=== PATIENT | female | born 1990 | race Caucasian/White ===

== ENCOUNTER 2024-02-01 11:47 | Emergency (ER) | payer MEDICAID ==
[~2024-02-01] VITALS: Ht 170.2 cm; Wt 113.6 kg
[2024-02-01 11:48] VITALS: BP 127/92; PULSE 100; RESP 16; O2SAT 97
== END 2024-02-01 12:54 | disposition left against medical advice (07) ==
LOC: ER 11:47 → EDBD 11:47 → ER 12:54
DX: T78.49XA Other allergy, initial encounter (principal); Z91.030 Bee allergy status; X58.XXXA Exposure to other specified factors, initial encounter

== ENCOUNTER 2024-12-11 07:01 | Emergency (ER) | payer MEDICAID ==
[~2024-12-11] VITALS: Ht 172.7 cm; Wt 82.0 kg
--- NOTE | 2024-12-11 07:11 | ED.PDOC ---
HPI Allergic reaction HPI Comments This is a 33 year old female JAMES presenting to the ED with chief complaint of allergic reaction. Patient reports that she had gotten stung by a bee this morning, causing her to suffer from anaphylaxis. 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 Patient states that she took her Epi-Pen prior to driving to a fire station for assistance. EMS notes patient was provided 0.3mg of Epinephrine on route to the ED along with a DuoNeb breathing treatment. Patient reports that she currently has some throat swelling, but her symptoms have improved. Patient denies any syncope, itchiness, dizziness, SOB, chest pain, or N/V. Time Seen by MD: 07:06 Primary Care Provider: GAMA Ramos Notes: Nurses Notes, Vice President Of Talent Management Notes, Medications, Allergies Allergies: Coded Allergies: Bee Venom (Verified Allergy, Unknown, 02/01/24) Information Source: Patient, Emergency Med Personnel Mode of Arrival: EMS Severity: Moderate SOB: Moderate Difficulty swallowing: Moderate Timing: Hours Duration: Since onset Prehospital treatment: None Location: Generalized Exposed to: Insect Developed: Difficult Swallowing, Pruritus, Throat Swelliing History of: Prior Similar Episodes Past Medical History PAST MEDICAL HISTORY: Denies Surgical History: Denies all surgeries BALLAST REGULATOR OPERATOR History: No Pertinent BALLAST REGULATOR OPERATOR History Family History Family History: Reviewed,noncontributory to illness, Unknown Social History Smoker: Non-Smoker Alcohol: Denies ETOH Use Drugs: Denies Drug Use Lives In: Home Constitutional: denies: chills, diaphoresis, fatigue, fever, malaise, sweats, weakness, others EENTM: reports: throat swelling; denies: blurred vision, double vision, ear bleeding, ear discharge, ear drainage, ear pain, ear ringing, eye pain, eye redness, hearing loss, mouth pain, mouth swelling, nasal discharge, nose bleeding, nose congestion, nose pain, photophobia, tearing, throat pain, voice changes, others Respiratory: denies: cough, hemoptysis, orthopnea, SOB at rest, shortness of breath, SOB with excertion, stridor, wheezing, others Cardiovascular: denies: chest pain, dizzy spells, diaphoresis, Dyspnea on exertion, edema, irregular heart beat, left arm pain, lightheadedness, palpitations, PND, syncope, others Gastrointestinal: denies: abdomen distended, abdominal pain, blood streaked bowels, constipated, diarrhea, dysphagia, difficulty swallowing, hematemesis, melena, nausea, poor appetite, poor fluid intake, rectal bleeding, rectal pain, vomiting, others Genitourinary: denies: abnormal vagina bleeding, burning, dyspareunia, dysuria, flank pain, frequency, hematuria, incontinence, pain, , vagina discharge, urgency, others Neurological: denies: dizziness, fainting, headache, left sided numbness, left sided weakness, numbness, paresthesia, pre-existing deficit, right sided numbness, right sided weakness, seizure, speech problems, tingling, tremors, weakness, others Musculoskeletal: denies: back pain, gout, joint pain, joint swelling, muscle pain, muscle stiffness, neck pain, others Integumetry: denies: bruises, change in color, change in hair/nails, dryness, laceration, lesions, lumps, rash, wounds, others Allergic/Immunocompromised: reports: Hives; denies: Difficulty Healing, Frequent Infections, Itching, others Hematologic/Lymphatic: denies: anemia, blood clots, easy bleeding, easy bruising, swollen glands, others Endocrine: denies: excessive hunger, excessive sweating, excessive thirst, excessive urination, flushing, intolerance to cold, intolerance to heat, unexplained weight gain, unexplained weight loss, others Psychiatric: denies: anxiety, bipolar disorder, depression, hopeless, panic disorder, schizophrenia, sleepless, suicidal, others All Other Systems: Reviewed and Negative Physical Exam General Appearance: Mild Distress, Normal HEENT: Normal ENT Inspection, Pharynx Normal, TMs Normal Neck: Full Range of Motion, Non-Tender, Normal, Normal Inspection Respiratory: Chest Non-Tender, Lungs Clear, No Accessory Muscle Use, No Re spiratory Distress, Other (Tahcypneic) Cardiovascular: No Edema, No Murmur, No Gallop, Normal Peripheral Pulses, Tachycardia Breast Exam: Deferred Gastrointestinal: No Organomegaly, Non Tender, Normal Bowel Sounds, Soft Genitalia: Deferred Pelvic: Deferred Rectal: Deferred Extremities: No calf tenderness, Normal capillary refill, Normal inspection, Normal range of motion, Non-tender, No pedal edema Musculoskeletal : Apperance: Normal Neurologic: Alert, 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 Was a procedure done?: No Differential diagnosis (all) Differential Diagnosis: Anaphylaxis X-Ray, Labs, Meds, VS Vital Signs Date Time Temp Pulse Resp B/P (MAP) Pulse Ox O2 Delivery O2 Flow Rate FiO2 12/11/24 10:01 81 17 103/57 (72) 93 12/11/24 08:00 95 12/11/24 08:00 98.2 91 22 103/69 (80) 95 98.2 12/11/24 07:31 102 21 97 Nasal Cannula* 2 28 12/11/24 07:29 98.0 105 24 114/73 (87) 93 98.0 12/11/24 07:23 98.9 112 22 138/88 100 98.9 Current Medications Medications (Trade) Dose Ordered Sig/Dileep Route Start Time Stop Time Status Last Admin Famotidine 40 mg/ Sodium Chloride 104 ml @ 416 mls/hr ONCE ONCE IV 12/11/24 07:15 12/11/24 07:29 DC 12/11/24 08:03 Methylprednisolone Sodium Succinate 500 mg/Sodium Chloride 100 ml @ 200 mls/hr ONCE ONCE IV 12/11/24 07:15 12/11/24 07:44 DC 12/11/24 08:34 Diphenhydramine HCl (Benadryl Injection) 50 mg ONCE ONCE IV 12/11/24 07:15 12/11/24 07:16 DC 12/11/24 07:24 X-Ray, Labs, Meds, VS Comment This 33-year-old female presents after having had allergic reaction to a bee sting. She has known allergic. She has given one epi in route by EMS. This followed her providing herself with an epi pen dose. Here, the patient was given Solu-Medrol, Pepcid and Benadryl. The patient was observed for several hours and continued to be asymptomatic. As such, she will be discharged home. The patient is aware of how to manage her anaphylaxis including allergy medications, Pepcid and steroids. As such, no new prescriptions were provided. The patient will be discharged home. Time of 1ST Reevaluation: 08:03 Reevaluation 1ST: Improved Patient Education/Counseling: Diagnosis, Treatment Family Education/Counseling: No Family Present SEPSIS Sepsis Screen Vital Signs Date Time Temp Pulse Resp B/P (MAP) Pulse Ox O2 Delivery O2 Flow Rate FiO2 12/11/24 10:01 81 17 103/57 (72) 93 12/11/24 08:00 95 12/11/24 08:00 98.2 91 22 103/69 (80) 95 98.2 12/11/24 07:31 102 21 97 Nasal Cannula* 2 28 12/11/24 07:29 98.0 105 24 114/73 (87) 93 98.0 12/11/24 07:23 98.9 112 22 138/88 100 98.9 Medications Medications Dose Ordered Sig/Dileep Route Start Time Stop Time Status Last Admin Dose Admin Diphenhydramine HCl 50 mg ONCE ONCE IV 12/11/24 07:15 12/11/24 07:16 DC 12/11/24 07:24 Famotidine 40 mg/ Sodium Chloride 104 ml @ 416 mls/hr ONCE ONCE IV 12/11/24 07:15 12/11/24 07:29 DC 12/11/24 08:03 Methylprednisolone Sodium Succinate 500 mg/Sodium Chloride 100 ml @ 200 mls/hr ONCE ONCE IV 12/11/24 07:15 12/11/24 07:44 DC 12/11/24 08:34 Departure 1 Departure Time of Disposition: 10:34 Impression: Primary Impression: Allergic reaction Additional Impression: Anaphylaxis Disposition: 01 HOME / SELF CARE / HOMELESS Condition: Good Discharged With: Self Critical Care Note Critical Care Time?: No Stability Stability form required: No Heart Score Heart Score: Heart Score Response (Comments) Value History N/A 0 EKG N/A 0 Age N/A 0 Risk Factors N/A 0 Troponin N/A 0 Total 0 I personally scribed for CHRISTOPHER IBRAHIM MD ([email or web address]) on 12/11/24 at 07:11. Electronically submitted by Delory Gautam ([email or web address]). CHRISTOPHER IBRAHIM MD Dec 11, 2024 07:11
[2024-12-11] MEDS: diphenhdrAMINE HCL 50 MG/1 ML VL IV ONE (07:24)
[2024-12-11 07:31] VITALS: PULSE 102; RESP 21; O2SAT 97
[2024-12-11 08:00] VITALS: TEMP 98.2
[2024-12-11] MEDS: FAMOTIDINE INJECTION 40 MG in SODIUM CHL 0.9% 100 ML IV ONE (08:03)
[2024-12-11] MEDS: methylPREDNISolone SOD SUCC 500 MG in SODIUM CHL 0.9% 100 ML IV ONE (08:34)
[2024-12-11 10:01] VITALS: BP 103/57; PULSE 81; RESP 17; O2SAT 93
[2024-12-11] MEDS ORDERED: EPIN0.1I11 IJ (11:11)
[2024-12-11 12:37] LABS: Urine Protein, UAD Negative (Negative)
== END 2024-12-11 11:11 | disposition home or self-care (01) ==
LOC: EDBD 07:01 → ER 07:01
DX: T78.2XXA Anaphylactic shock, unspecified, initial encounter (principal); T63.441A Toxic effect of venom of bees, accidental (unintentional), initial encounter; Z91.030 Bee allergy status; X58.XXXA Exposure to other specified factors, initial encounter
CPT/HCPCS: 81001; 96365; 96367; 96375; 99284; J1200; J2930; J3490